=== PATIENT | female | born 1960 | race Asian ===

== ENCOUNTER 2019-05-16 12:28 | Day surgery (SDC) | payer OTHER ==
[2019-05-16] MEDS ORDERED: MIDAZOLAM 1 MG/ML 2 ML INJ ×2 (14:57)
[2019-05-16] MEDS ORDERED: FENTAnyl 50 MCG/ML VIAL (14:57)
== END 2019-05-16 15:28 | disposition home or self-care (01) ==
LOC: GIL 12:28
DX: K92.1 Melena (principal); K64.8 Other hemorrhoids; E11.9 Type 2 diabetes mellitus without complications
CPT/HCPCS: 45378; 82962; 88305